=== PATIENT | female | born 1985 | race Caucasian/White ===

== ENCOUNTER 2018-01-16 15:21 | Emergency (ER) | payer MEDICAID ==
[~2018-01-16] VITALS: Ht 167.6 cm; Wt 56.0 kg
[2018-01-16 15:30] VITALS: BP 160/83
[2018-01-16] MEDS ORDERED: FLUT9.9S NS (15:57)
== END 2018-01-16 16:01 | disposition home or self-care (01) ==
LOC: ED 16:00
DX: B02.29 Other postherpetic nervous system involvement (principal)
CPT/HCPCS: 99283